=== PATIENT | male | born 1995 | race Caucasian/White ===

== ENCOUNTER 2017-03-13 01:23 | Emergency (ER) | payer BC ==
[2017-03-13 01:35] VITALS: BP 124/85; PULSE 132; TEMP 36.9; O2SAT 98
--- NOTE | 2017-03-13 01:52 | EMERGENCY ROOM VISIT NOTE ---
History Report prepared by Carina: Juhi Beck Under the Supervision of: Dr. Ayaan Thomas D.O. First contact with patient: :28 Chief Complaint: ALCOHOL OVERDOSE Stated Complaint: ALCOHOL OVERDOSE History of Present Illness The patient is a 22 year old male who presents to the Emergency Room with complaints of an episode of an alcohol overdose occurring [employer]. The patient was found by police in front of a bar [place]. Per police, he was outside the bar with an unsteady gait. The patient admits to drinking beer tonight and states that his last alcoholic drink was about 1.5 hours ago. He was with his fiance and her parents, but they got . He was waiting outside the bar while his fiance went to get the car. The patient denies any drug use. He denies any trauma or injury. He did not fall or hit his head. Source of History: patient, police Onset: [employer] Position: other (global) Timing: other (episode) Note: He denies any trauma or injury. He did not fall or hit his head. Review of Systems See HPI for pertinent positives & negatives. A total of 10 systems reviewed and were otherwise negative. Past Medical & Surgical Medical Problems: (1) No significant medical problems Family History No pertinent history stated. Social History Smoking Status: Current Every Day Smoker Alcohol Use: occasionally Drug Use: none Marital Status: in relationship Current/Historical Medications No Active Prescriptions or Reported Meds Allergies Coded Allergies: Codeine (Verified Allergy, Intermediate, RASH, 03/13/17) Physical Exam Vital Signs Date Time Temp Pulse Resp B/P (MAP) Pulse Ox O2 Delivery O2 Flow Rate FiO2 03/13/17 01:35 98 Room Air 03/13/17 01:35 36.9 132 22 124/85 98 Room Air 03/13/17 01:30 132 Physical Exam GENERAL: Patient is awake, alert, mildly anxious appearing. EYES: The conjunctivae are clear. The pupils are round and reactive. EARS, NOSE, MOUTH AND THROAT: The nose is without any evidence of any deformity. Mucous membranes are moist tongue is midline NECK: The neck is nontender and supple. RESPIRATORY: Normal respiratory effort is noted there is no evidence of wheezing rhonchi or rales CARDIOVASCULAR: Tachycardic rate and regular rhythm noted there no murmurs rubs or gallops normal S1 normal S2 GASTROINTESTINAL: The abdomen is soft. Bowel sounds are present in all quadrants. Abdomen is nontender MUSCULOSKELETAL/EXTREMITIES: There is no evidence of gross deformity full range of motion is noted in the hips and shoulders SKIN: There is no obvious evidence of any rash. There are no petechiae, pallor or cyanosis noted. NEUROLOGIC: Patient is awake alert and oriented x3 strength is symmetric patellar reflexes are 2+ bilaterally Medical Decision & Procedures ED Course 0128: The patient was evaluated in room B11A. A complete history and physical examination were performed. 0146: The patient's fiance arrived in the department with her parents. They are sober. He was discharged home into their care. Medical Decision Differential diagnosis: Etiologies such as alcohol intoxication, toxicologic, infection, hypoglycemia, electrolyte abnormalities, cardiac sources, intracerebral event, neurologic, as well as others were entertained. Nursing notes reviewed. Additional history is obtained from the prehospital personnel. The patient is a 22-year-old male who presented to the emergency department for suspected alcohol intoxication. The patient admits to drinking alcohol this evening. He was awake and alert upon arrival to the emergency department. It was reported that he was unsteady with his gait while he was waiting for his fianc to bring the car so he could go home. The patient's fianc presented to the emergency department and appeared sober. The patient was discharged with his fianc. He was encouraged to avoid any further alcoholic beverages and follow-up with his family doctor. Otherwise she was encouraged to drink plenty clear liquids and return to the emergency department immediately if symptoms change worsen or need arises. The patient was also encouraged to avoid operating any heavy machinery including driving a vehicle for the next 24 hours. Medication Reconcilliation Current Medication List: was personally reviewed by me Blood Pressure Screening Patient's blood pressure: Normal blood pressure Impression Primary Impression: Alcoholic intoxication Additional Impression: Tachycardia Scribe Attestation The scribe's documentation has been prepared under my direction and personally reviewed by me in its entirety. I confirm that the note above accurately reflects all work, treatment, procedures, and medical decision making performed by me. Departure Information Dispostion Home / Self-Care Prescriptions No Active Prescriptions or Reported Meds Referrals No Doctor, Assigned (PCP) Forms HOME CARE DOCUMENTATION FORM, IMPORTANT VISIT INFORMATION Patient Instructions My [facility] Additional Instructions Drink plenty clear liquids. Avoid any further alcoholic beverages. Do not operate any heavy machinery including driving a vehicle for the next 24 hours. Problem Qualifiers Primary Impression: Alcoholic intoxication Complication of substance-induced condition: uncomplicated Qualified Codes: F10.920 - Alcohol use, unspecified with intoxication, uncomplicated
== END 2017-03-13 02:00 | disposition home or self-care (01) ==
LOC: EDBD 01:23 → C.EDB 01:25
DX: F10.920 Alcohol use, unspecified with intoxication, uncomplicated (principal); R00.0 Tachycardia, unspecified; F17.200 Nicotine dependence, unspecified, uncomplicated